=== PATIENT | male | born 1975 ===

== ENCOUNTER 2017-11-15 22:16 | Emergency (ER) | payer SELFPAY ==
[2017-11-15 22:26] VITALS: O2SAT 98
--- NOTE | 2017-11-15 23:36 | C.PDOC ---
History Of Present Illness BIB family, intoxicated @ home, fell from standing striking L face on the floor , ? transient LOC. Witnessed by family @ home. + regular alcohol abuse. no change of mental status noted afterward nor now. - HPI Time Seen by Provider: 11/15/17 23:13 Chief Complaint (Nursing): Trauma History Per: Patient, EMS, Family History/Exam Limitations: clinical condition, intoxication Onset/Duration Of Symptoms: Mins Location Of Injury: Left: Face, Head Severity: Moderate Pain Scale Rating Of: 4 Associated Symptoms: Dizziness, Dazed, LOC Recent travel outside of the [facility]: No Additional History Per: Patient, Family - Fall Fall:Prior To Injury: Tripped Past Medical History Reviewed: Historical Data, Nursing Documentation, Vital Signs Vital Signs: Last Vital Signs Temp 97.5 F L 11/16/17 00:46 Pulse 70 11/16/17 00:46 Resp 18 11/16/17 00:46 BP 107/63 11/16/17 00:46 Pulse Ox 98 11/16/17 00:46 - Medical History PMH: No Chronic Diseases Surgical History: No Surg Hx Family History: States: No Known Family Hx - Social History Hx Alcohol Use: Yes Hx Substance Use: No - Immunization History Hx Tetanus Toxoid Vaccination: No Hx Influenza Vaccination: No Hx Pneumococcal Vaccination: No Review Of Systems Except As Marked, All Systems Reviewed And Found Negative. Physical Exam - Physical Exam Appears: Other (+ intoxicated) Skin: Ecchymosis (+ L orbital area), Other Head: Atraumatic, Normacephalic, No Tenderness, Swelling (L orbit) Eye(s): right: PERRL, EOMI, left: Normal Inspection (L eye swollen shut) Ear(s): Bilateral: Normal Oral Mucosa: Moist Tongue: Normal Appearing Lips: Normal Appearing Teeth: Normal Dentition Gingiva: Normal Appearing Throat: Normal Neck: Normal Lymphatic: Deferred Chest: Symmetrical Cardiovascular: Rhythm Regular Respiratory: Normal Breath Sounds Gastrointestinal/Abdominal: Normal Exam Rectal: Deferred Neurological/Psych: Oriented x3 Gait: Unsteady Other Neurological Findings: No Facial Palsy ED Course And Treatment O2 Sat by Pulse Oximetry: 98 - Other Rad max Face CT X-Ray: Interpreted by Me (neg), Read By Radiologist - CT Scan/US head CT Other Rad Studies (CT/US): Interpreted By Me (neg), Radiology Report Reviewed Progress Note: head and max/face CT. ice pack to L orbit Reevaluation Time: 23:38 Reassessment Condition: Improved Medical Decision Making Medical Decision Making: intox, fall from standing @ home, no head/max/face bony injury outpatient f/u with Optho PRN. Disposition Doctor Will See Patient In The: Office Counseled Patient/Family Regarding: Studies Performed, Diagnosis - Disposition Disposition: HOME/ ROUTINE Disposition Time: 00:49 Condition: GOOD Forms: [facility] (Portuguese) - Clinical Impression Clinical Impression: Alcohol abuse, Facial contusion
--- NOTE | 2017-11-16 00:45 | CT ---
EXAM: CT Head Without Intravenous Contrast CLINICAL HISTORY: 41 years old, male; Pain; Headache and other: Left frontal swelling and redness; Additional info: Intox, fall l frontal/orbit TECHNIQUE: Axial computed tomography images of the head/brain without intravenous contrast. All CT scans at this facility use one or more dose reduction techniques, viz.: automated exposure control; ma/kV adjustment per patient size (including targeted exams where dose is matched to indication; i.e. head); or iterative reconstruction technique. COMPARISON: No relevant prior studies available. FINDINGS: Brain: No intracranial hemorrhage. No mass. No edema. Ventricles: No hydrocephalus. Bones/joints: No calvarial fracture. Soft tissues: LEFT frontal soft tissue swelling. Mastoid air cells: No mastoid effusion. IMPRESSION: 1. No intracranial hemorrhage. 2. See facial bone CT report for additional details.
[2017-11-16 00:47] VITALS: BP 107/63; PULSE 70; RESP 18; TEMP 97.5
--- NOTE | 2017-11-16 00:56 | CT ---
EXAM: CT Maxillofacial Without Intravenous Contrast CLINICAL HISTORY: 41 years old, male; Pain and injury or trauma; Fall; Initial encounter; Swelling; Eyelid and jaw; Upper left and lower left; Eye pain and jaw pain; Additional info: Fall from stand l orbit TECHNIQUE: Axial computed tomography images of the face without intravenous contrast. All CT scans at this facility use one or more dose reduction techniques, viz.: automated exposure control; ma/kV adjustment per patient size (including targeted exams where dose is matched to indication; i.e. head); or iterative reconstruction technique. Coronal and sagittal reformatted images were created and reviewed. COMPARISON: No relevant prior studies available. FINDINGS: Bones/joints: No acute fracture. Soft tissues: LEFT periorbital/maxillary soft tissue swelling. Orbits: Unremarkable as visualized. Sinuses: Scattered mild mucosal thickening. Few maxillary retention cysts. No air-fluid levels. Dental: Dental caries. IMPRESSION: 1. No fracture. 2. Incidental/non-acute findings are described above.
== END 2017-11-16 01:47 | disposition home or self-care (01) ==
LOC: C.ER 22:16
DX: F10.10 Alcohol abuse, uncomplicated (principal); S00.83XA Contusion of other part of head, initial encounter; W18.30XA Fall on same level, unspecified, initial encounter; Y92.009 Unspecified place in unspecified non-institutional (private) residence as the place of occurrence of the external cause